=== PATIENT | female | born 1990 | race Caucasian/White ===

== ENCOUNTER 2017-10-21 12:46 | Emergency (ER) | payer BC, MEDICAID ==
[~2017-10-21] VITALS: Ht 165.1 cm; Wt 71.0 kg
[~2017-10-21 12:46] MED LIST: IBUP-232 PO; ZOFR4TAB3 SL
[2017-10-21 12:47] VITALS: BP 113/70; PULSE 71; RESP 16; TEMP 98.6; O2SAT 100
[2017-10-21] MEDS ORDERED: [UNRECOGNIZED DRUG - OTHER] (14:19)
--- NOTE | 2017-10-21 14:33 | PD ---
HPI Chief Complaint: Cold / Flu Symptoms Time Seen by Provider: 14:32 Travel History International Travel<30 days: No Contact w/Intl Traveler<30days: No Traveled to known affect area: No History of Present Illness HPI 27 y female presents to emergency department complaining of congestion, cough, clear rhinorrhea, and sinus discomfort since Tuesday. Patient states that she has had subjective fluctuating fevers and chills as well. Says she has mild chest discomfort with coughing. States that she use [id number] medications without relief. Patient denies recent travel, surgeries, immobilizations, fractures, or history of clots. States she had a Nexplanon placed 3 weeks ago but denies any other medication use. Denies chronic medical problems.Patient is a smoker. PFSH Past Medical History Depression: Yes Cancer: No Cardiovascular Problems: No Diabetes: No Endocrine: No Gastrointestinal Disorders: Yes (REFLUX) Genitourinary: Yes (FREQUENT BLADDER INFECTIONS) Hepatitis: No Hiatal Hernia: No Immune Disorder: No Musculoskeletal: No Neurologic: No Psychiatric: No Reproductive: No Respiratory: No Thyroid Disease: No ?: Not : 2 Para: 1 Miscarriage: 1 Past Surgical History Abdominal Surgery: Yes ("OVARY FUSED WITH OMENTUM") AICD: No Cardiac Surgery: No Section: Yes Ear Surgery: No Endocrine Surgery: No Eye Surgery: No Genitourinary Surgery: No Gynecologic Surgery: Yes () Joint Replacement: No Oral Surgery: No Pacemaker: No Thoracic Surgery: No Other Surgery: Yes Social History Alcohol Use: No Tobacco Use: Yes (1 PACK EVERY 2-3 DAYS) Substance Use: No Allergies-Medications (Allergen,Severity, Reaction): Coded Allergies: Sulfa (Sulfonamide Antibiotics) (Unverified Allergy, Severe, HIVES, ) raspberry (Unverified Allergy, Intermediate, FEVER, 10/21/17) adhesive (Unverified Allergy, Mild, RASH, 10/21/17) Reported Meds & Prescriptions Reported Meds & Active Scripts Active Medrol Dosepak (Methylprednisolone) 4 Mg Dspk 4 Mg PO DIRECTED Per Pharmacist direction Reported [ Control Imp] Review of Systems Except as stated in HPI: all other systems reviewed are Neg Physical Exam Narrative GENERAL: Well-developed well-nourished in no apparent distress SKIN: Focused skin assessment warm/dry. HEAD: Atraumatic. Normocephalic. EYES: Pupils equal and round. No scleral icterus. No injection or drainage. Frontal maxillary sinuses TTP, no edema. ENT: Scant clear rhinorrhea. Mucous membranes pink and moist. NECK: Trachea midline. No JVD. No lymphadenopathy CARDIOVASCULAR: Regular rate and rhythm. No murmur appreciated. RESPIRATORY: No accessory muscle use. Clear to auscultation. Breath sounds equal bilaterally. MUSCULOSKELETAL: No obvious deformities. No clubbing. No cyanosis. No edema. Mild TTP to anterior chest. NEUROLOGICAL: Awake and alert. No obvious cranial nerve deficits. Motor grossly within normal limits. Normal speech. PSYCHIATRIC: Appropriate mood and affect; insight and judgment normal. Data Data Last Documented VS Vital Signs Date Time Temp Pulse Resp B/P (MAP) Pulse Ox O2 Delivery O2 Flow Rate FiO2 10/21/17 12:47 98.6 71 16 113/70 (84) 100 Room Air Orders Orders Methylprednisolone So Succ Inj (Solumedr (10/21/17 14:45) Ed Discharge Order (10/21/17 15:15) [facility] Medical Decision Making Medical Screen Exam Complete: Yes Emergency Medical Condition: Yes Differential Diagnosis Upper respiratory infection, sinusitis, influenza, bronchitis, RSV Narrative Course 27 y female presents to emergency department complaining of congestion, cough, clear rhinorrhea, and sinus discomfort since Tuesday. Patient states that she has had subjective fluctuating fevers and chills as well. Says she has mild chest discomfort with coughing. States that she use [id number] medications without relief. Patient denies recent travel, surgeries, immobilizations, fractures, or history of clots. States she had a Nexplanon placed 3 weeks ago but denies any other medication use. Denies chronic medical problems.Patient is a smoker. Vital signs stable. Because of the duration of her symptoms, I suspect that this is of viral etiology. Patient states that "everybody is sick at work" with the same symptoms. Patient is also complaining of sinus pressure and pain. SoluMedrol 125 mg IM administered. Because of her cough, I offered a chest x-ray but I do not believe this is necessary at this point. She agreed and will hold off on any imaging studies. Patient will be discharged with Medrol Dosepak. Advised to use over-the- counter allergy medications for her symptoms in case there is an allergy component to her illness. Patient advised to return to the emergency department for worsening or persistent symptoms. Follow-up with a primary care physician within one week. [facility] information given. Diagnosis Primary Impression: Sinusitis Qualified Codes: J01.10 - Acute frontal sinusitis, unspecified Additional Impression: Upper respiratory infection Qualified Codes: J06.9 - Acute upper respiratory infection, unspecified; B97.89 - Other viral agents as the cause of diseases classified elsewhere Referrals: [facility] Additional Instructions: Follow up with your primary care physician within 2-3 days. If your symptoms persist or worsen, return to the emergency department. Take medication as prescribed. You may use saline nasal spray for your nasal and sinus issues. Consider using Sanaz, Zyrtec, or Claritin for your sinuses and nasal drip. Ensure you have adequate fluid intake with a nutritious diet. Consider smoking cessation as this may make her symptoms worse. Scripts Methylprednisolone Dosepak (Medrol Dosepak) 4 Mg Dspk 4 MG PO DIRECTED, #1 DSPK 0 Refills Per Pharmacist direction Prov: Jeison Hogan MD 10/21/17 Disposition: 01 DISCHARGE HOME Condition: Stable Dodie Flores Oct 21, 2017 14:33
[2017-10-21] MEDS ORDERED: methylPREDNISolone SOD SUCC 125 MG/2 ML VIAL IM ONE (14:45)
[2017-10-21] MEDS ORDERED: MEDR4PAK PO (15:16)
== END 2017-10-21 15:36 | disposition home or self-care (01) ==
LOC: NEPK 12:46
DX: J32.9 Chronic sinusitis, unspecified (principal); J06.9 Acute upper respiratory infection, unspecified; F32.9 Major depressive disorder, single episode, unspecified; K21.9 Gastro-esophageal reflux disease without esophagitis; F17.200 Nicotine dependence, unspecified, uncomplicated; Z79.899 Other long term (current) drug therapy; Z88.2 Allergy status to sulfonamides
CPT/HCPCS: 96372; 99284; J2930

== ENCOUNTER 2018-01-03 14:29 | Emergency (ER) | payer MEDICAID ==
[~2018-01-03 14:29] MED LIST changes: -IBUP-232 PO; +MEDR4PAK PO; -ZOFR4TAB3 SL; +[UNRECOGNIZED DRUG - OTHER]
[2018-01-03 14:47] VITALS: BP 104/59; PULSE 81; RESP 18; TEMP 98.7; O2SAT 99
[2018-01-03] MEDS ORDERED: PRED20 PO (17:47)
--- NOTE | 2018-01-03 17:47 | PD ---
HPI Chief Complaint: Cold / Flu Symptoms Time Seen by Provider: 17:20 Travel History International Travel<30 days: No Contact w/Intl Traveler<30days: No Traveled to known affect area: No History of Present Illness HPI This is a 27-year-old female here for evaluation of sore throat, cough, nasal congestion and reported wheezing at night. Symptom severity is mild. She reports symptom improvement with use of her albuterol inhaler. She denies chest pain or shortness of breath. No fever chills. Symptoms ongoing intermittent only for several weeks. PFSH Past Medical History Narrative Medical Significant for asthma Depression: Yes Cancer: No Cardiovascular Problems: No Diabetes: No Endocrine: No Gastrointestinal Disorders: Yes (REFLUX) Genitourinary: Yes (FREQUENT BLADDER INFECTIONS) Hepatitis: No Hiatal Hernia: No Immune Disorder: No Musculoskeletal: No Neurologic: No Psychiatric: No Reproductive: No Respiratory: No Thyroid Disease: No ?: Unknown LMP: on control : 2 Para: 1 Miscarriage: 1 Past Surgical History Abdominal Surgery: Yes ("OVARY FUSED WITH OMENTUM") AICD: No Cardiac Surgery: No Section: Yes Ear Surgery: No Endocrine Surgery: No Eye Surgery: No Genitourinary Surgery: No Gynecologic Surgery: Yes () Joint Replacement: No Oral Surgery: No Pacemaker: No Thoracic Surgery: No Other Surgery: Yes Social History Alcohol Use: No Tobacco Use: Yes (1 PACK EVERY 2-3 DAYS) Substance Use: No Allergies-Medications (Allergen,Severity, Reaction): Coded Allergies: Sulfa (Sulfonamide Antibiotics) (Unverified Allergy, Severe, HIVES, ) raspberry (Unverified Allergy, Intermediate, FEVER, 10/21/17) adhesive (Unverified Allergy, Mild, RASH, 10/21/17) Reported Meds & Prescriptions Reported Meds & Active Scripts Active Medrol Dosepak (Methylprednisolone) 4 Mg Dspk 4 Mg PO DIRECTED Per Pharmacist direction Reported [ Control Imp] Review of Systems Except as stated in HPI: all other systems reviewed are Neg General / Constitutional: No: Fever HENT: Positive: Sore Throat, Congestion Cardiovascular: No: Chest Pain or Discomfort Respiratory: Positive: Cough, Wheezing Gastrointestinal: No: Abdominal Pain Genitourinary: No: Dysuria Physical Exam Narrative GENERAL: Alert and well-appearing 27-year-old female SKIN: Warm and dry. HEAD: Normocephalic. EYES: No injection or drainage Ear/nose/throat: Clear nasal discharge. Mild pharyngeal erythema without tonsillar hypertrophy or exudate. NECK: Supple CARDIOVASCULAR: Regular rate and rhythm RESPIRATORY: Breath sounds equal bilaterally. No accessory muscle use. Data Data Last Documented VS Vital Signs Date Time Temp Pulse Resp B/P (MAP) Pulse Ox O2 Delivery O2 Flow Rate FiO2 01/03/18 14:47 98.7 81 18 104/59 (74) 99 MDM Medical Decision Making Medical Screen Exam Complete: Yes Emergency Medical Condition: Yes Differential Diagnosis Viral upper respiratory infection, reactive airway, bronchitis/pneumonia Narrative Course This is a well-appearing 27-year-old female here with mild viral upper respiratory-like illness. She is reporting wheezing intermittently which responds to her albuterol inhaler. As a history of asthma. She'll be given a short dose of steroids and instructed to continue albuterol as needed. Symptomatic treatment discussed Diagnosis Primary Impression: URI (upper respiratory infection) Qualified Codes: J06.9 - Acute upper respiratory infection, unspecified Referrals: Primary Care Physician Departure Forms: Tests/Procedures, Work Release Enter return to work date: Jan 04, 2018 Additional Instructions: Steroids as directed. Albuterol inhaler as needed for wheezing. Follow-up the primary doctor. Tylenol and ibuprofen for pain or fever. Scripts Prednisone (Prednisone) 20 Mg Tab 40 MG PO DIRECTED for 3 Days, TAB 0 Refills Prov: Margarita Almonte 01/03/18 Disposition: 01 DISCHARGE HOME Condition: Stable Margarita Almonte Jan 03, 2018 17:47
== END 2018-01-03 18:12 | disposition home or self-care (01) ==
LOC: NEPK 14:29
DX: J06.9 Acute upper respiratory infection, unspecified (principal); F17.200 Nicotine dependence, unspecified, uncomplicated
CPT/HCPCS: 99283